=== PATIENT | female | born 1965 | race Two or more races ===

== ENCOUNTER 2019-03-08 08:31 | Day surgery (SDC) | payer MEDICAID ==
[2019-03-02 14:40] LABS: Basophils # (auto) 0 uL; Basophils % (auto) 0.2 % (0.0-2.0); Eosinophils # (auto) 0 uL; Eosinophils % (auto) 0.4 % (0.0-7.0); Hematocrit 40.7 % (36.0-46.0); Hemoglobin 13.7 g/dL (12.2-16.2); Lymphocytes # (auto) 1.1 uL; Lymphocytes % (auto) 20.3 % (10.0-50.0); Mean Corpuscular Hemoglobin 29.4 pg (28.0-32.0); Mean Corpuscular Hgb Conc. 33.8 g/dL (32.0-36.0); Mean Corpuscular Volume 86.8 fL (80.0-100.0); Monocytes # (auto) 0.4 uL; Monocytes % (auto) 7.2 % (0.0-12.0); Neutrophils # (auto) 3.8 uL; Neutrophils % (auto) 71.9 % (37.0-80.0); Nucleated Red Blood Cells % 0.2 %; Platelet Count (auto) 164 10^3/uL (140-450); Red Blood Cells 4.68 10^6/uL (4.0-5.20); Red Cell Distribution Width 16.4 % (11.8-14.3); White Blood Cell 5.3 10^3/uL (4.4-10.8)
[2019-03-02 14:54] LABS: Albumin 4.1 g/dL (3.4-5.0); Calcium 9.6 mg/dL (8.5-10.1); Potassium 4.4 mmol/L (3.5-5.1)
[2019-03-02 15:03] LABS: INR 0.97 (0.9-1.15); Partial Thromboplastin Time 24.7 sec (23.64-32.05)
[2019-03-02 15:04] LABS: Total Protein 7.9 g/dL (6.4-8.2)
[2019-03-02 15:09] LABS: Urine Bacteria NONE SEEN /hpf (None Seen); Urine Blood Negative /uL (Negative); Urine Specific Gravity 1.039 (1.001-1.035); Urine WBC 1 /hpf (0 - 5)
[~2019-03-08] VITALS: Ht 165.1 cm; Wt 76.2 kg
[~2019-03-08 08:31] MED LIST: ASPI81TA27 PO; ATOR40TA52 PO; GABA600T PO; INSU100I4 SC; INSU1INJ19 SC; LISI10TA6 PO; MEMA10TA PO
[2019-03-08] MEDS ORDERED: ROPIVACAINE 0.5% (5MG/ML) 20ML AMPULE IJ ONE ×2 (08:45→10:50)
[2019-03-08] MEDS ORDERED: ceFAZolin 1GM/50ML 50 ML IV ONE (08:59)
[2019-03-08] MEDS ORDERED: METOCLOPRAMIDE HCL 5MG/ml INJ 2ml VIAL IV ONE (09:45)
[2019-03-08] MEDS ORDERED: ACCU-CHEK COMFORT CURVE STRIP VI ONE (09:45)
[2019-03-08] MEDS ORDERED: KETOROLAC TROMETH 30 MG/ML 1ML VIAL IV ONE (09:45)
[2019-03-08] MEDS ORDERED: HYDROmorphone HCL 2 MG/ML VL IV PRN (09:45)
[2019-03-08] MEDS ORDERED: PROPOFOL 10 MG/ML 20 ML IV ONE ×2 (10:08→11:10)
[2019-03-08] MEDS ORDERED: MIDAZOLAM HCL 1MG/1ML-2 ML VIAL ONE (10:08)
[2019-03-08] MEDS ORDERED: SODIUM CHLORIDE LOCK 10 ML ONE (10:08)
[2019-03-08] MEDS ORDERED: fentaNYL CITRATE 100 MCG/2 ML VL ONE (10:08)
[2019-03-08] MEDS ORDERED: ONDANSETRON HCL 4 MG/2 ML VIAL ONE (10:08)
[2019-03-08] MEDS ORDERED: NEOMYCIN-BACITRACIN-POLYM 15GM TOP OINT TOP ONE (10:09)
[2019-03-08 12:22] VITALS: BP 150/89
== END 2019-03-08 12:30 | disposition home or self-care (01) ==
LOC: SUR 08:31
PROVIDERS: ATTEND Podiatrist Foot & Ankle Surgery
DX: M20.42 Other hammer toe(s) (acquired), left foot (principal); M20.41 Other hammer toe(s) (acquired), right foot; L84 Corns and callosities; F41.9 Anxiety disorder, unspecified; F32.9 Major depressive disorder, single episode, unspecified; J45.909 Unspecified asthma, uncomplicated; D64.9 Anemia, unspecified; E11.319 Type 2 diabetes mellitus with unspecified diabetic retinopathy without macular edema; E66.9 Obesity, unspecified; I10 Essential (primary) hypertension; E78.5 Hyperlipidemia, unspecified; F17.210 Nicotine dependence, cigarettes, uncomplicated; Z68.28 Body mass index [BMI] 28.0-28.9, adult; Z79.4 Long term (current) use of insulin; Z79.82 Long term (current) use of aspirin; Z79.899 Other long term (current) drug therapy; Z87.59 Personal history of other complications of pregnancy, childbirth and the puerperium
CPT/HCPCS: 28285; 36415; 80053; 81001; 82962; 85025; 85610; 85730; 88304; 88311; 93005; J0690; J2250; J2405; J2704; J2795; J3010; L3260

== ENCOUNTER → 2019-08-30 | Day surgery (SDC) | payer MEDICAID ==
[2019-08-22 13:58] LABS: Urine Bacteria NONE SEEN /hpf (None Seen); Urine Blood Negative /uL (Negative); Urine Specific Gravity 1.035 (1.001-1.035); Urine WBC 9 /hpf (0 - 5)
[2019-08-22 14:04] LABS: INR 1.04 (0.9-1.15); Partial Thromboplastin Time 24.8 sec (23.64-32.05)
[2019-08-22 14:06] LABS: Calcium 8.9 mg/dL (8.5-10.1); Potassium 4.2 mmol/L (3.5-5.1)
[2019-08-22 14:08] LABS: Total Protein 7.5 g/dL (6.4-8.2)
[2019-08-22 14:25] LABS: Basophils # (auto) 0 uL; Basophils % (auto) 0.4 % (0.0-2.0); Eosinophils # (auto) 0.1 uL; Eosinophils % (auto) 1.1 % (0.0-7.0); Hematocrit 43.6 % (36.0-46.0); Hemoglobin 15.6 g/dL (12.2-16.2); Lymphocytes % (auto) 25.5 % (10.0-50.0); Mean Corpuscular Hemoglobin 30.4 pg (28.0-32.0); Mean Corpuscular Hgb Conc. 35.7 g/dL (32.0-36.0); Mean Corpuscular Volume 85.1 fL (80.0-100.0); Monocytes # (auto) 0.5 uL; Monocytes % (auto) 6.7 % (0.0-12.0); Neutrophils # (auto) 5.1 uL; Neutrophils % (auto) 66.3 % (37.0-80.0); Platelet Count (auto) 175 10^3/uL (140-450); Red Blood Cells 5.12 10^6/uL (4.0-5.20); Red Cell Distribution Width 13.6 % (11.8-14.3); White Blood Cell 7.7 10^3/uL (4.4-10.8)
[~2019-08-30] VITALS: Ht 165.1 cm; Wt 77.1 kg
[~2019-08-30] MED LIST changes: +ASPI-404 PO; -ASPI81TA27 PO; +MIDAZOLAM HCL 1MG/1ML-2 ML VIAL ONE; +NEOMYCIN-BACITRACIN-POLYM 15GM TOP OINT TOP ONE; +PROPOFOL 10 MG/ML 20 ML IV ONE; +ROPIVACAINE 0.5% (5MG/ML) 20ML AMPULE IJ ONE; +ceFAZolin 1GM/50ML 50 ML IV ONE; +fentaNYL CITRATE 100 MCG/2 ML VL ONE
[2019-08-30 10:49] VITALS: BP 135/71
== END | disposition home or self-care (01) ==
LOC: SUR 07:26
PROVIDERS: ATTEND Podiatrist Foot & Ankle Surgery
DX: M20.42 Other hammer toe(s) (acquired), left foot (principal); I10 Essential (primary) hypertension; D64.9 Anemia, unspecified; E11.319 Type 2 diabetes mellitus with unspecified diabetic retinopathy without macular edema; I25.10 Atherosclerotic heart disease of native coronary artery without angina pectoris; K21.9 Gastro-esophageal reflux disease without esophagitis; F17.210 Nicotine dependence, cigarettes, uncomplicated; Z79.01 Long term (current) use of anticoagulants; Z98.891 History of uterine scar from previous surgery; Z95.818 Presence of other cardiac implants and grafts; Z98.890 Other specified postprocedural states; Z79.4 Long term (current) use of insulin; Z79.82 Long term (current) use of aspirin; Z79.899 Other long term (current) drug therapy
CPT/HCPCS: 28285; 36415; 80053; 81001; 82962; 85025; 85610; 85730; 88304; 88311; 93005; J0690; J2250; J2704; J2795; J3010; L3260